=== PATIENT | male | born 1945 | race Caucasian/White ===

== ENCOUNTER 2016-12-05 16:23 | Observation (INO) | payer MEDICARE ==
[2016-12-05] MEDS ORDERED: Sodium Chloride 0.9% 1,000 ML IV ONE (17:38)
--- NOTE | 2016-12-05 17:52 | C.PDOC ---
History Of Present Illness 71 y/o male is sent to the ED by Dr. Bell for evaluation after abnormal outpatient blood work. She reports that patient had been complaining of bright red stool for 2 weeks and his labs indicated elevated BUN, elevated Creatinine, and drop in Hemoglobin from 12 to 7. Patient has shortness of breath which he states is normal due to history of COPD. He states, "I used to smoke like a chimney." Patient denies any chest pain, fever, dizziness, abdominal pain, vomiting, recent travel, or other complaints. Time Seen by Provider: 12/05/16 17:37 Chief Complaint (Nursing): Abnormal Labs History Per: Patient History/Exam Limitations: no limitations Onset/Duration Of Symptoms: Persistent Current Symptoms Are (Timing): Still Present Recent travel outside of the [place]: No Past Medical History Reviewed: Historical Data, Nursing Documentation, Vital Signs Vital Signs: Last Vital Signs Temp 98.1 F 12/05/16 17:02 Pulse 106 H 12/05/16 17:02 Resp 18 12/05/16 17:02 BP 128/79 12/05/16 17:02 Pulse Ox 99 12/05/16 17:57 - Medical History PMH: COPD, Depression, HTN, Hypercholesterolemia Surgical History: Cholecystectomy Family History: States: No Known Family Hx - Social History Hx Tobacco Use: Yes (former smoker) Hx Alcohol Use: No Hx Substance Use: No - Immunization History Hx Tetanus Toxoid Vaccination: No Hx Influenza Vaccination: No Hx Pneumococcal Vaccination: No Review Of Systems Except As Marked, All Systems Reviewed And Found Negative. Constitutional: Positive for: Other (abnormal labs). Negative for: Fever Cardiovascular: Negative for: Chest Pain Respiratory: Positive for: Shortness of Breath (baseline) Gastrointestinal: Positive for: Other (bright red stool). Negative for: Vomiting, Abdominal Pain Neurological: Negative for: Dizziness Physical Exam - Physical Exam Appears: Non-toxic, No Acute Distress, Other (morbidly obese) Skin: Normal Color, Warm, Dry, No Rash Head: Atraumatic, Normacephalic Eye(s): bilateral: Normal Inspection, PERRL, EOMI Oral Mucosa: Moist Neck: Normal ROM Chest: Symmetrical Cardiovascular: Rhythm Regular, No Friction Rub, No Murmur Respiratory: Normal Breath Sounds, No Rales, No Rhonchi, No Wheezing Gastrointestinal/Abdominal: Normal Exam, Soft, No Tenderness Extremity: Normal ROM, No Swelling Neurological/Psych: Oriented x3, Normal Speech, Normal Cognition, Normal Motor Gait: Steady ED Course And Treatment - Laboratory Results Result Diagrams: 12/05/16 18:12 12/05/16 18:12 O2 Sat by Pulse Oximetry: 99 (ra) Pulse Ox Interpretation: Normal Medical Decision Making Medical Decision Making: Plan: * Blood Work * Urinalysis * IV Fluid Per Dr. Bell's request, patient will be admitted to her service. case was discussed with Dr. Palacios who agrees to consult on the patient. Disposition - Disposition Disposition: HOSPITALIZED Disposition Time: 18:30 Condition: STABLE - POA Present On Arrival: None - Clinical Impression Clinical Impression: Anemia, Lower GI bleed, Dehydration - PA / TANK WELDER / Resident Statement MD/DO has reviewed & agrees with the documentation as recorded. - Scribe Statement The provider has reviewed the documentation as recorded by the Scribe (Tessy Ledezma) All medical record entries made by the Scribe were at my direction and personally dictated by me. I have reviewed the chart and agree that the record accurately reflects my personal performance of the history, physical exam, medical decision making, and the department course for this patient. I have also personally directed, reviewed, and agree with the discharge instructions and disposition.
[2016-12-05 18:25] LABS: RBC URINE < 1 /hpf (0-3); URINE BILIRUBIN NEGATIVE (NEGATIVE); URINE BLOOD NEGATIVE (NEGATIVE); URINE COLOR Straw (YELLOW); URINE GLUCOSE (UA) NORMAL (Normal); URINE KETONE NEGATIVE (NEGATIVE); URINE LEUKOCYTE ESTERASE NEG Leu/uL (Negative); URINE PROTEIN 2+ mg/dL (NEGATIVE); URINE UROBILINOGEN NORMAL mg/dL (0.2-1.0); WBC URINE 1 /hpf (0-5)
[2016-12-05 18:30] LABS: ALB/GLOB RATIO 1.2 (1.0-2.1); BILIRUBIN,TOTAL 0.2 mg/dL (0.2-1.3); CALCIUM 7.9 mg/dl (8.6-10.4); TOTAL PROTEIN 6.3 g/dL (6.3-8.3)
[2016-12-05 18:34] LABS: BASO # 0.1 K/uL (0.0-0.2); BASO % 1.2 % (0.0-2.0); EOS # 0.4 K/uL (0.0-0.7); EOS % 5.8 % (0.0-4.0); HEMATOCRIT 24.4 % (35.0-51.0); LYMPH # 1.3 K/uL (1.0-4.3); LYMPH % 19.6 % (20.0-40.0); MEAN CELL VOLUME 94.2 fL (80.0-94.0); MEAN CORPUSCULAR HEMOGLOBIN 29.8 pg (27.0-31.0); MEAN CORPUSCULAR HGB CONC 31.7 g/dL (33.0-37.0); MEAN PLATELET VOLUME 9.1 fL (7.2-11.7); MONO # 0.5 K/uL (0.0-0.8); MONO % 7.9 % (0.0-10.0); RED CELL DISTRIBUTION WIDTH 13.8 % (11.5-14.5); WHITE BLOOD COUNT 6.5 K/uL (4.8-10.8)
[2016-12-05 18:55] LABS: INR 1.1
--- NOTE | 2016-12-05 19:10 | CP.PCM.HP ---
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 PATIENT HAD RECENT STENT AND WAS PLACED ON BLOOD THINNER , BLACK STOOL PERSISTED DESPITE MEDICATION CHANGE- PATIENT CAME TO CLINIC AND HAD STAT CBC THAT SHOWED 7.5 FROM ORIGINAL OF 12, WITH SLIGHTLY LOW BP- PATIENT WAS TOLD TO GO TO ER IN ER REPEAT HEMOGLOBIN WAS 7.7, PATIENT DENIES DIZZINES, NO ABDOMINAL PAIN, NO OTHER COMPLAINT , OTHER LABS SHOWED CREATININE OF 4, AND VERY HIGH BUN PATIENY IS ADMITTED FOR FURTHER EVALUATION AND MANAGEMENT ROS as above PMH as above Medications see listing Surgery cardiac stent cholecystectomy Social lives with travels back and forth to Previous heavy smoker immunization pneumonia vaccine 2016 flu shot 2016 Present on Admission - Present on Admission Any Indicators Present on Admission: Yes History of DVT/PE: No History of Uncontrolled Diabetes: Yes Urinary Catheter: No Decubitus Ulcer Present: No Review of Systems - Constitutional Constitutional: absent: Fever, Weakness - EENT Eyes: absent: Other Visual Disturbances Nose/Mouth/Throat: absent: Nasal Discharge, Bleeding Gums, Sore Throat - Cardiovascular Cardiovascular: absent: Chest Pain - Respiratory Respiratory: Cough (occassionally). absent: Hemoptysis, Wheezing - Gastrointestinal Gastrointestinal: Hematochezia, Melena. absent: Abdominal Pain, Heartburn, Vomiting - Genitourinary Genitourinary: absent: Dysuria, Flank Pain - Neurological Neurological: absent: Abnormal Movements, Behavioral Changes, Convulsions, Dizziness - Psychiatric Psychiatric: Depression (by history on meds ). absent: Visual Hallucinations - Endocrine Endocrine: absent: Palpitations, Polydipsia, Polyphagia, Polyuria - Hematologic/Lymphatic Hematologic: absent: Easy Bleeding, Easy Bruising Past Patient History - Infectious Disease Hx of Infectious Diseases: None - Past Medical History & Family History Past Medical History?: Yes - Past Social History Smoking Status: Former Smoker Occupation: retired Alcohol: Occasional Drugs: Denies Home Situation {Lives}: With Family - CARDIAC Hx Cardiac Disorders: Yes (CAD s/p stent x5) Hx Heart Attack: Yes Hx Hypercholesterolemia: Yes Hx Hypertension: Yes - PULMONARY Hx Chronic Obstructive Pulmonary Disease (COPD): Yes - RENAL Hx Chronic Kidney Disease: Yes - ENDOCRINE/METABOLIC Hx Diabetes Mellitus Type 2: Yes Other/Comment: Chronic kidney disease - MUSCULOSKELETAL/RHEUMATOLOGICAL Hx Herniated Disk: Yes Hx Osteoarthritis: Yes - GASTROINTESTINAL Other/Comment: Gastric bleeding ulcers. - PSYCHIATRIC Hx Depression: Yes Hx Substance Use: No - SURGICAL HISTORY Hx Cholecystectomy: Yes - ANESTHESIA Hx Anesthesia: Yes Hx Anesthesia Reactions: No Meds Allergies/Adverse Reactions: Allergies Allergy/AdvReac Type Severity Reaction Status Date / Time No Known Allergies Allergy Verified 12/05/16 17:08 Physical Exam - Constitutional Appears: Non-toxic, No Acute Distress - Head Exam Head Exam: ATRAUMATIC, NORMOCEPHALIC - Eye Exam Eye Exam: Normal appearance. absent: Nystagmus - ENT Exam ENT Exam: Mucous Membranes Dry - Neck Exam Neck exam: Positive for: Full Rom. Negative for: Tenderness - Cardiovascular Exam Cardiovascular Exam: REGULAR RHYTHM - GI/Abdominal Exam GI & Abdominal Exam: Normal Bowel Sounds, Soft. absent: Distended, Tenderness - Extremities Exam Extremities exam: Positive for: joint swelling, pedal pulses present. Negative for: calf tenderness, tenderness - Back Exam Back exam: FULL ROM. absent: rash noted, tenderness - Neurological Exam Neurological exam: Alert, Normal Gait, Oriented x3, Reflexes Normal - Psychiatric Exam Psychiatric exam: Normal Affect, Normal Mood - Skin Skin Exam: Dry, Intact, Normal Color Results - Vital Signs Recent Vital Signs: Last Vital Signs Temp 98.1 F 12/05/16 17:02 Pulse 106 H 12/05/16 17:02 Resp 18 12/05/16 17:02 BP 128/79 12/05/16 17:02 Pulse Ox 99 12/05/16 17:57 - Labs Result Diagrams: 12/05/16 18:12 12/05/16 18:12 Labs: Laboratory Results - last 24 hr 12/05/16 18:12 WBC 6.5 RBC 2.59 L Hgb 7.7 L Hct 24.4 L MCV 94.2 H MCH 29.8 MCHC 31.7 L RDW 13.8 Plt Count 229 MPV 9.1 Neut % (Auto) 65.5 Lymph % (Auto) 19.6 L [place] % (Auto) 7.9 Eos % (Auto) 5.8 H Baso % (Auto) 1.2 Neut # 4.3 Lymph # 1.3 [place] # 0.5 Eos # 0.4 Baso # 0.1 Sodium 138 Potassium 5.0 Chloride 108 H Carbon Dioxide 17 L Anion Gap 18 BUN 78 H Creatinine 4.4 H Est GFR ( Amer) 16 Est GFR (Non-Af Amer) 13 Random Glucose 68 L Calcium 7.9 L Total Bilirubin 0.2 AST 24 ALT 32 Alkaline Phosphatase 50 Total Protein 6.3 Albumin 3.5 Globulin 2.8 Albumin/Globulin Ratio 1.2 Urine Color Straw Urine Clarity Clear Urine pH 5.0 Ur Specific [place] 1.012 Urine Protein 2+ H Urine Glucose (UA) Normal Urine Ketones Negative Urine Blood Negative Urine Nitrate Negative Urine Bilirubin Negative Urine Urobilinogen Normal Ur Leukocyte Esterase Neg Urine WBC (Auto) 1 Urine RBC (Auto) < 1 Ur Squamous Epith Cells < 1 Assessment & Plan - Assessment and Plan (Free Text) Assessment: Patient multiple medical problem admitted for LGIB- with recent use of anti platelet post cardiac stent ,with history of PUD, WITH ACUTE DROP IN HEMOGLOBIN- WILL TRANSFUSE- GI CONSULTED AND DISCUSSED DEHYDRATION - IVF CRI WITH CREATININE OF 4.4 - WITH DEHYDRATION ABOVE- WILL NOTIFY HIS RENAL DM- ACCUCHECK WITH SLIDING SCALE HYPERTENSION- ON THE LOW SIDE WILL MONITOR History of Depression stable= to continue meds no DVT med prophylaxis for now, do SCD plan discussed with patient and specialist - Date & Time Date: 12/05/16 Time: 20:10
[2016-12-05] MEDS: Sodium Chloride 0.9% 1,000 ML IV SCH (19:19)
--- NOTE | 2016-12-05 20:51 | CP.PCM.CON ---
History of Present Illness - History of Present Illness History of Present Illness: pt seen and examined, full consult is dictated #[id number] 1. htn 2. dm, 3. ckd-4 4. nephrotic range proteinuria 5. copd 6. cad s/p cath and 2 stents placement 7. Anemia sec to GI bleed ( ?UGI bleed with black stool) renal function is stable transfuse PRBC as needed slowly in 3-4 hrs and lasix 40 mg after each unit transfusion Past Patient History - Infectious Disease Hx of Infectious Diseases: None - Past Medical History & Family History Past Medical History?: Yes - Past Social History Smoking Status: Former Smoker Occupation: retired Alcohol: Occasional Drugs: Denies Home Situation {Lives}: With Family - CARDIAC Hx Cardiac Disorders: Yes (CAD s/p stent x5) Hx Heart Attack: Yes Hx Hypercholesterolemia: Yes Hx Hypertension: Yes - PULMONARY Hx Asthma: Yes Hx Chronic Obstructive Pulmonary Disease (COPD): Yes - RENAL Hx Chronic Kidney Disease: Yes - ENDOCRINE/METABOLIC Hx Diabetes Mellitus Type 2: Yes Other/Comment: Chronic kidney disease - MUSCULOSKELETAL/RHEUMATOLOGICAL Hx Herniated Disk: Yes Hx Osteoarthritis: Yes - GASTROINTESTINAL Other/Comment: Gastric bleeding ulcers. black tarry stools x1 week - PSYCHIATRIC Hx Depression: Yes Hx Substance Use: No - SURGICAL HISTORY Hx Cardiac Catheterization: Yes Hx Cholecystectomy: Yes Hx Coronary Stent: Yes - ANESTHESIA Hx Anesthesia: Yes Hx Anesthesia Reactions: No Hx Malignant Hyperthermia: No Has any member of the family had a problem w/ anesthesia?: No Meds Allergies/Adverse Reactions: Allergies Allergy/AdvReac Type Severity Reaction Status Date / Time No Known Allergies Allergy Verified 12/05/16 17:08 - Medications Medications: Current Medications Escitalopram Oxalate (Lexapro) 10 mg PO DAILY [facility] Glipizide (Glucotrol Xl) 2.5 mg PO DAILY [facility] Home Med (Febuxostat [Uloric]) 40 mg PO DAILY [facility] Hydralazine HCl (Apresoline) 100 mg PO BID [facility] Sodium Chloride (Sodium Chloride 0.9%) 1,000 mls @ 80 mls/hr IV .[id number] [facility] Last Admin: 12/05/16 19:19 Dose: 80 mls/hr Metoprolol Tartrate (Lopressor) 100 mg PO BID [facility] Pantoprazole Sodium (Protonix Inj) 40 mg IVP DAILY [facility] Rosuvastatin Calcium (Crestor) 10 mg PO HS [facility] Fluticasone/Salmeterol (Advair Diskus 250/50) 1 puff INH RQ12 [facility] Sodium Bicarbonate (Sodium Bicarbonate Tab) 650 mg PO TID [facility] Tiotropium [place] (Spiriva Inhalation Handihaler Device) 1 inhaler INH RQD [facility] Tiotropium [place] (Spiriva) 18 mcg INH RQ24 [facility] Results - Vital Signs Recent Vital Signs: Last Vital Signs Temp 97.7 F 12/05/16 19:21 Pulse 100 H 12/05/16 19:21 Resp 18 12/05/16 19:21 BP 130/86 12/05/16 19:21 Pulse Ox 99 12/05/16 19:22 - Labs Result Diagrams: 12/05/16 18:12 12/05/16 18:12 Labs: Laboratory Results - last 24 hr 12/05/16 12/05/16 18:12 18:17 WBC 6.5 RBC 2.59 L Hgb 7.7 L Hct 24.4 L MCV 94.2 H MCH 29.8 MCHC 31.7 L RDW 13.8 Plt Count 229 MPV 9.1 Neut % (Auto) 65.5 Lymph % (Auto) 19.6 L [place] % (Auto) 7.9 Eos % (Auto) 5.8 H Baso % (Auto) 1.2 Neut # 4.3 Lymph # 1.3 [place] # 0.5 Eos # 0.4 Baso # 0.1 PT 12.3 H INR 1.1 APTT 34 Sodium 138 Potassium 5.0 Chloride 108 H Carbon Dioxide 17 L Anion Gap 18 BUN 78 H Creatinine 4.4 H Est GFR ( Amer) 16 Est GFR (Non-Af Amer) 13 Random Glucose 68 L Calcium 7.9 L Total Bilirubin 0.2 AST 24 ALT 32 Alkaline Phosphatase 50 Total Protein 6.3 Albumin 3.5 Globulin 2.8 Albumin/Globulin Ratio 1.2 Urine Color Straw Urine Clarity Clear Urine pH 5.0 Ur Specific [place] 1.012 Urine Protein 2+ H Urine Glucose (UA) Normal Urine Ketones Negative Urine Blood Negative Urine Nitrate Negative Urine Bilirubin Negative Urine Urobilinogen Normal Ur Leukocyte Esterase Neg Urine WBC (Auto) 1 Urine RBC (Auto) < 1 Ur Squamous Epith Cells < 1 Blood Type A POSITIVE Blood Type Confirm A POSITIVE Antibody Screen Negative
--- NOTE | 2016-12-06 02:40 | CON ---
DATE: 12/05/2016 REQUESTING PHYSICIAN: Dr. Savannah Bell. LOCATION: The patient is located in room 557, bed A. REASON FOR RENAL CONSULTATION: Chronic kidney disease, nephrotic range proteinuria, rectal bleed. HISTORY OF PRESENT ILLNESS: The patient is a 71-year-old obese male with a history of longstanding hypertension since 1992 and a history of diabetes for about 3-4 years, COPD, chronic smoker for more than 150-200 pack/year, history of COPD, who was recently seen by me in the [facility] for renal failure and proteinuria. The patient had a 24-hour urine collection, more than nephrotic range, and also the patient was refusing hemodialysis at that time and. Subsequently. the patient was discharged home and the patient underwent cardiac catheterization and found to have blockage and underwent 2 stents placement about 10 days ago. His post-cardiac care, his creatinine remains stable about 4.2-4.3. The patient was admitted to the Emergency Room for rectal bleed x 1 week. As per the patient, he has black stool for the last 1 week. The patient initially seen by PMD and advised to be admitted and referred to the Emergency Room. Initially went to the Medical Center. The patient signed out and came to the [facility] for further management. The patient denies any chest pain, palpitation. Denies any fever, cough. No abdominal pain, no nausea, vomiting, diarrhea. PAST MEDICAL HISTORY: Significant for hypertension since 1992 and diabetes for 3-4 years, COPD and coronary artery disease. PAST SURGICAL HISTORY: Denies any surgeries. ALLERGIES: No known drug allergies. SOCIAL HISTORY: The patient was an ex-smoker, used to smoke 3-4 packs per day since age 15 and quit about 5 years ago. Had a 150-200 pack/year. Social alcohol use and no drug abuse. PERSONAL HISTORY: He is and he has 3 children. 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 FAMILY HISTORY: Not significant. CURRENT MEDICATIONS: Include as follows: Advair 250 and 50 one puff q. 12 hours, hydralazine 100 mg p.o. b.i.d., Crestor 10 mg at bedtime and Glucotrol- XL 2.5 mg p.o. daily, Lasix 40 mg p.o. daily, Lexapro 10 mg daily, famotidine 40 mg IV daily and metoprolol 100 mg p.o. b.i.d., NovoLog insulin for sliding scale, Protonix 40 mg IV daily, sodium bicarbonate 650 p.o. t.i.d., Spiriva 18 mcg inhaler q. 24 hours. REVIEW OF SYSTEMS: Significant for proteinuria and also significant for black stool and anemia. All other review of systems are reviewed and are negative. PHYSICAL EXAMINATION: VITAL SIGNS: As follows: Blood pressure 130/78, pulse 101, respirations 20, temperature 97.7, saturation 99%. Height 5 feet 5 inches and weight is 254 pounds, BMI 42.3. 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 Was admitted with black stool for 1 week with a history of hypertension, diabetes, chronic obstructive pulmonary disease, ex-smoker and chronic kidney disease with proteinuria. Although workup was within normal limits and patient refused kidney biopsy, he was admitted with black stool for 1 week. 1. Chronic kidney disease stage IV, etiology is not clear, rule out chronic glomerulonephritis such as FSGS, rule out diabetic nephropathy, less likely. This patient does not have any other manifestations of the diabetes at this time. 2. Nephrotic range proteinuria, rule out chronic glomerulonephritis such as FSGS. 3. Anemia secondary to gastrointestinal bleed. 4. Hypertension. 5. Diabetes. 6. Chronic obstructive pulmonary disease. 7. Gastrointestinal bleed, most likely upper gastrointestinal bleed secondary to Eliquis, Plavix and aspirin. PLAN: Transfuse as per the primary 2 units. We will give Lasix 40 mg after each unit of transfusion and consider GI evaluation and also cardiology evaluation for recent cardiac stents placement. Overall, prognosis is guarded. Will follow with you. His blood pressure is stable. Continue hydralazine and metoprolol. Repeat CBC, CMP and phosphorus and PTH intact and iron, TIBC, ferritin level. Will follow with you. Thank you for allowing me to participate in your patient's care. Page Mixon MD cc: [id number] TT: 12/06/2016 02:39:15 Confirmation # [id number] Dictation # [id number] [email or web address]
[2016-12-06] MEDS: (Novolog) Insulin Aspart, Recombinant 100 u/ml 10 ml vial SC SCH ×4 (07:43→22:00)
[2016-12-06] MEDS: Fluticasone-Salmeterol 250-50mcg Diskus INH SCH ×2 (08:54→20:52)
[2016-12-06] MEDS: Tiotropium 18 mcg Cap For Inhalation INH SCH (08:54)
--- NOTE | 2016-12-06 09:13 | CP.PCM.PN ---
Subjective - Date & Time of Evaluation Date of Evaluation: 12/06/16 Time of Evaluation: 09:00 - Subjective Subjective: Patient seen- in bed- NPO- patient reports normal looking color stool, afebrile , no abdominal pain , no vomting - Gastro aware is NPO information [employer] for scope anti platelet on hold was seen by orchestra musician and renal Objective - Vital Signs/Intake and Output Vital Signs (last 24 hours): Temp Pulse Resp BP Pulse Ox 97.9 F 115 H 18 114/65 96 12/06/16 08:50 12/06/16 09:09 12/06/16 08:50 12/06/16 08:50 12/06/16 08:50 Intake and Output: 12/06/16 12/06/16 06:59 18:59 Intake Total 680 Output Total 1200 Balance -520 - Medications Medications: Current Medications Escitalopram Oxalate (Lexapro) 10 mg PO DAILY [facility] Glipizide (Glucotrol Xl) 2.5 mg PO DAILY [facility] Home Med (Febuxostat [Uloric]) 40 mg PO DAILY [facility] Hydralazine HCl (Apresoline) 100 mg PO BID [facility] Sodium Chloride (Sodium Chloride 0.9%) 1,000 mls @ 80 mls/hr IV .[id number] [facility] Last Admin: 12/05/16 19:19 Dose: 80 mls/hr Insulin Aspart (Novolog) 0 unit SC ACHS [facility] PRN Reason: Protocol Last Admin: 12/06/16 07:43 Dose: Not Given Metoprolol Tartrate (Lopressor) 100 mg PO BID [facility] Last Admin: 12/05/16 21:15 Dose: 100 mg Pantoprazole Sodium (Protonix Inj) 40 mg IVP DAILY [facility] Rosuvastatin Calcium (Crestor) 10 mg PO HS [facility] Last Admin: 12/05/16 22:13 Dose: 10 mg Fluticasone/Salmeterol (Advair Diskus 250/50) 1 puff INH RQ12 [facility] Last Admin: 12/06/16 08:54 Dose: Not Given Sodium Bicarbonate (Sodium Bicarbonate Tab) 650 mg PO TID [facility] Tiotropium [place] (Spiriva Inhalation Handihaler Device) 1 inhaler INH RQD [facility] Tiotropium [place] (Spiriva) 18 mcg INH RQ24 [facility] Last Admin: 12/06/16 08:54 Dose: Not Given - Labs Labs: 12/05/16 18:12 12/05/16 18:12 PT 12.3 SECONDS (9.7-12.2) H 12/05/16 18:12 INR 1.1 12/05/16 18:12 APTT 34 SECONDS (21-34) 12/05/16 18:12 - Constitutional Appears: Non-toxic - Head Exam Head Exam: ATRAUMATIC, NORMOCEPHALIC - Eye Exam Eye Exam: Normal appearance. absent: Nystagmus - ENT Exam ENT Exam: Mucous Membranes Moist - Neck Exam Neck Exam: Full ROM. absent: Tenderness - Respiratory Exam Respiratory Exam: Clear to Ausculation Bilateral, NORMAL BREATHING PATTERN - Cardiovascular Exam Cardiovascular Exam: REGULAR RHYTHM - GI/Abdominal Exam GI & Abdominal Exam: Soft. absent: Tenderness - Extremities Exam Extremities Exam: Full ROM. absent: Pedal Edema, Tenderness - Back Exam Back Exam: Full ROM. absent: tenderness - Neurological Exam Neurological Exam: Alert, Awake, Normal Gait, Oriented x3 - Psychiatric Exam Psychiatric exam: Normal Affect, Normal Mood - Skin Skin Exam: Intact, Normal Color Assessment and Plan - Assessment and Plan (Free Text) Assessment: Patient with LGIB with recent use of blood thinner- which are on hold- no active bleeding, repeat CBC pending - patient remained asymptomatic Dehydration with CRI- renal on case CAD s/p stents with antiplatelet on hold- cardio aware Hypertension on monitoring adjust accordingly Deporession on meds stable continue monitring further GI evaluation
--- NOTE | 2016-12-06 09:25 | CP.PCM.CON ---
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 Pt had coronary stents many years ago, and no recently two RCA stents at [facility] [place] . Pt has chronic afib, on eliquis. Was on DAPT also. Now dark stool, dyspnea, and admitted to hospital with anemia. Cr is very elevated, a new finding. Pt says that stools are better today. No chest pain, TNI are normal. Recent assessment of LV EF was normal EF. 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 black tarry stools x1 week - PSYCHIATRIC Hx Depression: Yes Hx Substance Use: No - SURGICAL HISTORY Hx Cardiac Catheterization: Yes Hx Cholecystectomy: Yes Hx Coronary Stent: Yes - ANESTHESIA Hx Anesthesia: Yes Hx Anesthesia Reactions: No Hx Malignant Hyperthermia: No Has any member of the family had a problem w/ anesthesia?: No Meds Allergies/Adverse Reactions: Allergies Allergy/AdvReac Type Severity Reaction Status Date / Time No Known Allergies Allergy Verified 12/05/16 17:08 - Medications Medications: Current Medications Escitalopram Oxalate (Lexapro) 10 mg PO DAILY [facility] Glipizide (Glucotrol Xl) 2.5 mg PO DAILY [facility] Home Med (Febuxostat [Uloric]) 40 mg PO DAILY [facility] Hydralazine HCl (Apresoline) 100 mg PO BID [facility] Sodium Chloride (Sodium Chloride 0.9%) 1,000 mls @ 80 mls/hr IV .[id number] [facility] Last Admin: 12/05/16 19:19 Dose: 80 mls/hr Insulin Aspart (Novolog) 0 unit SC ACHS [facility] PRN Reason: Protocol Last Admin: 12/06/16 07:43 Dose: Not Given Metoprolol Tartrate (Lopressor) 100 mg PO BID [facility] Last Admin: 12/05/16 21:15 Dose: 100 mg Pantoprazole Sodium (Protonix Inj) 40 mg IVP DAILY [facility] Rosuvastatin Calcium (Crestor) 10 mg PO HS [facility] Last Admin: 12/05/16 22:13 Dose: 10 mg Fluticasone/Salmeterol (Advair Diskus 250/50) 1 puff INH RQ12 [facility] Last Admin: 12/06/16 08:54 Dose: Not Given Sodium Bicarbonate (Sodium Bicarbonate Tab) 650 mg PO TID [facility] Tiotropium [place] (Spiriva Inhalation Handihaler Device) 1 inhaler INH RQD [facility] Tiotropium [place] (Spiriva) 18 mcg INH RQ24 [facility] Last Admin: 12/06/16 08:54 Dose: Not Given Physical Exam - Constitutional Appears: Well - Head Exam Head Exam: NORMAL INSPECTION - Eye Exam Eye Exam: EOMI, Normal appearance Pupil Exam: NORMAL ACCOMODATION - ENT Exam ENT Exam: Mucous Membranes Moist - Neck Exam Neck exam: Positive for: Normal Inspection - Respiratory Exam Respiratory Exam: Clear to Auscultation Bilateral - Cardiovascular Exam Cardiovascular Exam: Irregular Rhythm - GI/Abdominal Exam GI & Abdominal Exam: Normal Bowel Sounds - Exam External exam: NORMAL EXTERNAL EXAM - Extremities Exam Extremities exam: Positive for: normal inspection - Back Exam Back exam: NORMAL INSPECTION - Psychiatric Exam Psychiatric exam: Normal Affect, Normal Mood - Skin Skin Exam: Dry, Normal Color Results - Vital Signs Recent Vital Signs: Last Vital Signs Temp 97.9 F 12/06/16 08:50 Pulse 115 H 12/06/16 09:09 Resp 18 12/06/16 08:50 BP 114/65 12/06/16 08:50 Pulse Ox 96 12/06/16 08:50 - Labs Result Diagrams: 12/05/16 18:12 12/05/16 18:12 Labs: Laboratory Results - last 24 hr 12/05/16 12/05/16 12/05/16 18:12 18:17 22:00 WBC 6.5 RBC 2.59 L Hgb 7.7 L Hct 24.4 L MCV 94.2 H MCH 29.8 MCHC 31.7 L RDW 13.8 Plt Count 229 MPV 9.1 Neut % (Auto) 65.5 Lymph % (Auto) 19.6 L [place] % (Auto) 7.9 Eos % (Auto) 5.8 H Baso % (Auto) 1.2 Neut # 4.3 Lymph # 1.3 [place] # 0.5 Eos # 0.4 Baso # 0.1 PT 12.3 H INR 1.1 APTT 34 Sodium 138 Potassium 5.0 Chloride 108 H Carbon Dioxide 17 L Anion Gap 18 BUN 78 H Creatinine 4.4 H Est GFR ( Amer) 16 Est GFR (Non-Af Amer) 13 POC Glucose (mg/dL) 137 H Random Glucose 68 L Calcium 7.9 L Total Bilirubin 0.2 AST 24 ALT 32 Alkaline Phosphatase 50 Troponin I Total Protein 6.3 Albumin 3.5 Globulin 2.8 Albumin/Globulin Ratio 1.2 Urine Color Straw Urine Clarity Clear Urine pH 5.0 Ur Specific [place] 1.012 Urine Protein 2+ H Urine Glucose (UA) Normal Urine Ketones Negative Urine Blood Negative Urine Nitrate Negative Urine Bilirubin Negative Urine Urobilinogen Normal Ur Leukocyte Esterase Neg Urine WBC (Auto) 1 Urine RBC (Auto) < 1 Ur Squamous Epith Cells < 1 Blood Type A POSITIVE Blood Type Confirm A POSITIVE Antibody Screen Negative 12/06/16 12/06/16 01:54 06:42 WBC RBC Hgb Hct MCV MCH MCHC RDW Plt Count MPV Neut % (Auto) Lymph % (Auto) [place] % (Auto) Eos % (Auto) Baso % (Auto) Neut # Lymph # [place] # Eos # Baso # PT INR APTT Sodium Potassium Chloride Carbon Dioxide Anion Gap BUN Creatinine Est GFR ( Amer) Est GFR (Non-Af Amer) POC Glucose (mg/dL) 111 H Random Glucose Calcium Total Bilirubin AST ALT Alkaline Phosphatase Troponin I 0.0170 Total Protein Albumin Globulin Albumin/Globulin Ratio Urine Color Urine Clarity Urine pH Ur Specific [place] Urine Protein Urine Glucose (UA) Urine Ketones Urine Blood Urine Nitrate Urine Bilirubin Urine Urobilinogen Ur Leukocyte Esterase Urine WBC (Auto) Urine RBC (Auto) Ur Squamous Epith Cells Blood Type Blood Type Confirm Antibody Screen - EKG Data EKG Interpreted by: Myself (atrial fib, old IMI) Assessment & Plan - Assessment and Plan (Free Text) Assessment: 1. The patient has GI bleed as per history. All anticoagulation stopped. Ig Hgb stable, as stents are LEILA and recent, then at least plavix is advised. Transfuse for Hgb less than 7.0 Repeat cbc today. 2. Acute kidney injury: hydration. follow Cr, Nephrology is on board. 3. Pt is cleared foe egd/colonoscpy by Dr Palacios, if he so decides.
[2016-12-06] MEDS ORDERED: Home Med 1 UNIT (Febuxostat [Uloric] 40 MG) PO SCH (10:00)
--- NOTE | 2016-12-06 10:50 | CP.PCM.CON ---
History of Present Illness - History of Present Illness History of Present Illness: CC: Melena HPI: year old man S/P coronary stenting 2 weeks ago at [facility] [place], presents with 3-4 days of melena, no abdominal pain, found to have Hgb 7. Patient was transfused PRBCs and seen by Cardiology, cleared for endoscopic procedures. 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 Denies dyspnea, abdominal pain, or chest pain. Patient has prior history of bleeding peptic ulcers, the last episode being in 2008. Review of Systems - Constitutional Constitutional: absent: Chills, Fever - EENT Eyes: absent: Change in Vision Ears: absent: Ear Pain Nose/Mouth/Throat: absent: Sore Throat - Cardiovascular Cardiovascular: absent: Chest Pain - Respiratory Respiratory: absent: Dyspnea - Gastrointestinal Gastrointestinal: Melena. absent: Abdominal Pain - Genitourinary Genitourinary: absent: Difficulty Urinating - Musculoskeletal Musculoskeletal: Back Pain - Integumentary Integumentary: absent: Rash - Neurological Neurological: absent: Abnormal Hearing - Psychiatric Psychiatric: absent: Anxiety - Hematologic/Lymphatic Hematologic: absent: Easy Bleeding Past Patient History - Infectious Disease Hx of Infectious Diseases: None - Past Medical History & Family History Past Medical History?: Yes - Past Social History Smoking Status: Former Smoker Occupation: retired Alcohol: Occasional Drugs: Denies Home Situation {Lives}: With Family - CARDIAC Hx Cardiac Disorders: Yes (CAD s/p stent x5) Hx Heart Attack: Yes Hx Hypercholesterolemia: Yes Hx Hypertension: Yes - PULMONARY Hx Asthma: Yes Hx Chronic Obstructive Pulmonary Disease (COPD): Yes - RENAL Hx Chronic Kidney Disease: Yes - ENDOCRINE/METABOLIC Hx Diabetes Mellitus Type 2: Yes Other/Comment: Chronic kidney disease - MUSCULOSKELETAL/RHEUMATOLOGICAL Hx Herniated Disk: Yes Hx Osteoarthritis: Yes - GASTROINTESTINAL Other/Comment: Gastric bleeding ulcers. black tarry stools x1 week - PSYCHIATRIC Hx Depression: Yes Hx Substance Use: No - SURGICAL HISTORY Hx Cardiac Catheterization: Yes Hx Cholecystectomy: Yes Hx Coronary Stent: Yes - ANESTHESIA Hx Anesthesia: Yes Hx Anesthesia Reactions: No Hx Malignant Hyperthermia: No Has any member of the family had a problem w/ anesthesia?: No Meds Allergies/Adverse Reactions: Allergies Allergy/AdvReac Type Severity Reaction Status Date / Time No Known Allergies Allergy Verified 12/05/16 17:08 - Medications Medications: Current Medications Escitalopram Oxalate (Lexapro) 10 mg PO DAILY [facility] Glipizide (Glucotrol Xl) 2.5 mg PO DAILY [facility] Home Med (Febuxostat [Uloric]) 40 mg PO DAILY [facility] Hydralazine HCl (Apresoline) 100 mg PO BID [facility] Sodium Chloride (Sodium Chloride 0.9%) 1,000 mls @ 80 mls/hr IV .[id number] [facility] Last Admin: 12/05/16 19:19 Dose: 80 mls/hr Insulin Aspart (Novolog) 0 unit SC ACHS [facility] PRN Reason: Protocol Last Admin: 12/06/16 07:43 Dose: Not Given Metoprolol Tartrate (Lopressor) 100 mg PO BID [facility] Last Admin: 12/06/16 09:22 Dose: 100 mg Pantoprazole Sodium (Protonix Inj) 40 mg IVP DAILY [facility] Rosuvastatin Calcium (Crestor) 10 mg PO HS [facility] Last Admin: 12/05/16 22:13 Dose: 10 mg Fluticasone/Salmeterol (Advair Diskus 250/50) 1 puff INH RQ12 [facility] Last Admin: 12/06/16 08:54 Dose: Not Given Sodium Bicarbonate (Sodium Bicarbonate Tab) 650 mg PO TID [facility] Tiotropium [place] (Spiriva Inhalation Handihaler Device) 1 inhaler INH RQD [facility] Tiotropium [place] (Spiriva) 18 mcg INH RQ24 [facility] Last Admin: 12/06/16 08:54 Dose: Not Given Physical Exam - Constitutional Appears: Well, No Acute Distress - Head Exam Head Exam: ATRAUMATIC, NORMOCEPHALIC - Eye Exam Eye Exam: Normal appearance. absent: Scleral icterus - ENT Exam ENT Exam: Normal Exam - Neck Exam Neck exam: Positive for: Normal Inspection. Negative for: Thyromegaly - Respiratory Exam Respiratory Exam: Clear to Auscultation Bilateral - Cardiovascular Exam Cardiovascular Exam: REGULAR RHYTHM - GI/Abdominal Exam GI & Abdominal Exam: Soft. absent: Distended, Organomegaly, Tenderness - Rectal Exam Rectal Exam: Deferred - Extremities Exam Extremities exam: Positive for: normal inspection - Back Exam Back exam: NORMAL INSPECTION - Psychiatric Exam Psychiatric exam: Normal Affect, Normal Mood Results - Vital Signs Recent Vital Signs: Last Vital Signs Temp 97.9 F 12/06/16 08:50 Pulse 115 H 12/06/16 09:09 Resp 18 12/06/16 08:50 BP 114/65 12/06/16 08:50 Pulse Ox 96 12/06/16 08:50 - Labs Result Diagrams: 12/05/16 18:12 12/05/16 18:12 Labs: Laboratory Results - last 24 hr 12/05/16 12/05/16 12/05/16 18:12 18:17 22:00 WBC 6.5 RBC 2.59 L Hgb 7.7 L Hct 24.4 L MCV 94.2 H MCH 29.8 MCHC 31.7 L RDW 13.8 Plt Count 229 MPV 9.1 Neut % (Auto) 65.5 Lymph % (Auto) 19.6 L [place] % (Auto) 7.9 Eos % (Auto) 5.8 H Baso % (Auto) 1.2 Neut # 4.3 Lymph # 1.3 [place] # 0.5 Eos # 0.4 Baso # 0.1 PT 12.3 H INR 1.1 APTT 34 Sodium 138 Potassium 5.0 Chloride 108 H Carbon Dioxide 17 L Anion Gap 18 BUN 78 H Creatinine 4.4 H Est GFR ( Amer) 16 Est GFR (Non-Af Amer) 13 POC Glucose (mg/dL) 137 H Random Glucose 68 L Calcium 7.9 L Total Bilirubin 0.2 AST 24 ALT 32 Alkaline Phosphatase 50 Troponin I Total Protein 6.3 Albumin 3.5 Globulin 2.8 Albumin/Globulin Ratio 1.2 Urine Color Straw Urine Clarity Clear Urine pH 5.0 Ur Specific [place] 1.012 Urine Protein 2+ H Urine Glucose (UA) Normal Urine Ketones Negative Urine Blood Negative Urine Nitrate Negative Urine Bilirubin Negative Urine Urobilinogen Normal Ur Leukocyte Esterase Neg Urine WBC (Auto) 1 Urine RBC (Auto) < 1 Ur Squamous Epith Cells < 1 Blood Type A POSITIVE Blood Type Confirm A POSITIVE Antibody Screen Negative 12/06/16 12/06/16 01:54 06:42 WBC RBC Hgb Hct MCV MCH MCHC RDW Plt Count MPV Neut % (Auto) Lymph % (Auto) [place] % (Auto) Eos % (Auto) Baso % (Auto) Neut # Lymph # [place] # Eos # Baso # PT INR APTT Sodium Potassium Chloride Carbon Dioxide Anion Gap BUN Creatinine Est GFR ( Amer) Est GFR (Non-Af Amer) POC Glucose (mg/dL) 111 H Random Glucose Calcium Total Bilirubin AST ALT Alkaline Phosphatase Troponin I 0.0170 Total Protein Albumin Globulin Albumin/Globulin Ratio Urine Color Urine Clarity Urine pH Ur Specific [place] Urine Protein Urine Glucose (UA) Urine Ketones Urine Blood Urine Nitrate Urine Bilirubin Urine Urobilinogen Ur Leukocyte Esterase Urine WBC (Auto) Urine RBC (Auto) Ur Squamous Epith Cells Blood Type Blood Type Confirm Antibody Screen Assessment & Plan (1) Anemia Status: Acute Comment: Chronic disease with superimposed iron deficiency anemia from Gastrointestinal bleeding. Plavix use post coronary stenting. (2) Melena Assessment and Plan: GI Bleed, on Plavix. Recommend ppi + EGD to evaluate Status: Acute (3) Coronary angioplasty status Assessment and Plan: 2 weeks ago. Drug eluting stent. High risk for thrombosis off Plavix, therefore urgent EGD required. Cardiology follow up Status: Acute
[2016-12-06] MEDS: GlipiZIDE 2.5 mg SR Tab PO SCH (11:01)
[2016-12-06] MEDS ORDERED: Etomidate 20 mg/10ml Inj IV ONE (11:27)
[2016-12-06] MEDS ORDERED: Propofol 10 mg/ml Inj (20 ML) ONE (11:27)
[2016-12-06] MEDS ORDERED: Lidocaine Hydrochloride 5 ML INJ ONE (11:27)
[2016-12-06 11:42] LABS: BASO # 0.1 K/uL (0.0-0.2); BASO % 0.8 % (0.0-2.0); EOS # 0.5 K/uL (0.0-0.7); EOS % 6.2 % (0.0-4.0); LYMPH # 1.2 K/uL (1.0-4.3); LYMPH % 14.9 % (20.0-40.0); MEAN CELL VOLUME 93.9 fL (80.0-94.0); MEAN CORPUSCULAR HEMOGLOBIN 30.7 pg (27.0-31.0); MEAN CORPUSCULAR HGB CONC 32.7 g/dL (33.0-37.0); MEAN PLATELET VOLUME 9.4 fL (7.2-11.7); MONO # 0.6 K/uL (0.0-0.8); MONO % 7.7 % (0.0-10.0); NRBC % 0.1 % (0.0-2.0); RED CELL DISTRIBUTION WIDTH 14.9 % (11.5-14.5); WHITE BLOOD COUNT 7.7 K/uL (4.8-10.8)
[2016-12-06 11:57] LABS: TROPONIN I 0.018 ng/mL (0.00-0.120)
[2016-12-06 16:06] VITALS: RESP 20
[2016-12-06] MEDS ORDERED: Bisacodyl 5mg EC Tab PO ONE (17:00)
[2016-12-06] MEDS ORDERED: Peg-Electrolyte Oral Soln 4L (Golytely) PO ONE (18:00)
--- NOTE | 2016-12-06 19:12 | CP.PCM.PN ---
Subjective - Date & Time of Evaluation Date of Evaluation: 12/06/16 Time of Evaluation: 19:12 - Subjective Subjective: pt seen and examined, follow up consult is dictated #[id number] will add epogen, nephrocaps Objective - Vital Signs/Intake and Output Vital Signs (last 24 hours): Temp Pulse Resp BP Pulse Ox 98.2 F 79 20 138/82 96 12/06/16 15:09 12/06/16 15:30 12/06/16 15:09 12/06/16 15:09 12/06/16 15:09 Intake and Output: 12/06/16 12/07/16 18:59 06:59 Intake Total 100 Balance 100 - Medications Medications: Current Medications Clopidogrel Bisulfate (Plavix) 75 mg PO DAILY [facility] Last Admin: 12/06/16 17:57 Dose: 75 mg Escitalopram Oxalate (Lexapro) 10 mg PO DAILY [facility] Last Admin: 12/06/16 13:45 Dose: 10 mg Glipizide (Glucotrol Xl) 2.5 mg PO DAILY [facility] Last Admin: 12/06/16 11:01 Dose: Not Given Home Med (Febuxostat [Uloric]) 40 mg PO DAILY [facility] Hydralazine HCl (Apresoline) 100 mg PO BID [facility] Last Admin: 12/06/16 18:04 Dose: 100 mg Sodium Chloride (Sodium Chloride 0.9%) 1,000 mls @ 80 mls/hr IV .[id number] [facility] Last Admin: 12/05/16 19:19 Dose: 80 mls/hr Insulin Aspart (Novolog) 0 unit SC ACHS [facility] PRN Reason: Protocol Last Admin: 12/06/16 16:30 Dose: Not Given Metoprolol Tartrate (Lopressor) 100 mg PO BID [facility] Last Admin: 12/06/16 18:04 Dose: 100 mg Pantoprazole Sodium (Protonix Inj) 40 mg IVP DAILY [facility] Last Admin: 12/06/16 13:46 Dose: 40 mg Polyethylene Glycol/Electrolytes (Golytely) 2,000 ml PO ONCE ONE Stop: 12/07/16 06:01 Rosuvastatin Calcium (Crestor) 10 mg PO HS [facility] Last Admin: 12/05/16 22:13 Dose: 10 mg Fluticasone/Salmeterol (Advair Diskus 250/50) 1 puff INH RQ12 [facility] Last Admin: 12/06/16 08:54 Dose: Not Given Sodium Bicarbonate (Sodium Bicarbonate Tab) 650 mg PO TID [facility] Last Admin: 12/06/16 17:57 Dose: 650 mg Tiotropium [place] (Spiriva Inhalation Handihaler Device) 1 inhaler INH RQD [facility] Tiotropium [place] (Spiriva) 18 mcg INH RQ24 [facility] Last Admin: 12/06/16 08:54 Dose: Not Given - Labs Labs: 12/06/16 11:22 12/06/16 11:22 PT 12.3 SECONDS (9.7-12.2) H 12/05/16 18:12 INR 1.1 12/05/16 18:12 APTT 34 SECONDS (21-34) 12/05/16 18:12
[2016-12-06] MEDS: Sodium Chloride 0.9% 1,000 ML IV SCH (20:15)
--- NOTE | 2016-12-07 00:21 | PN ---
DATE: 12/06/2016 LOCATION: The patient is located in room 660, bed A. REQUESTED BY: Dr. Savannah Bell. REASON FOR RENAL CONSULTATION: Chronic kidney disease stage IV, stage IV nephrotic range proteinuria, anemia, status post gastrointestinal bleed. 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 The patient underwent a transfusion yesterday, 2 units packed RBC, and received Lasix between the transfusions. The patient also underwent EGD consistent with gastric ulcers, nonbleeding at this time, patient is feeling better, not in acute distress and denies any headache, dizziness. Denies any chest pain, palpitations. Denies any fever, cough, no abdominal pain, no nausea, vomiting, diarrhea. No edema of the legs. No dysuria or frequency. PHYSICAL EXAMINATION: VITAL SIGNS: Blood pressure 138/82, pulse 79, respirations 20, temperature 98.2 , saturation 96%, height 5 feet 5 inches and weight is 254 pounds. GENERAL: The patient is a 71-year-old obese elderly male, well built, well nourished, not in acute distress. HEENT: Pupils normal, reactive to light and accommodation. Conjunctivae pink. Sclerae anicteric. Tongue is moist. NECK: Trachea midline. LUNGS: Symmetric on both sides. Bilateral breath sounds present. Clear on auscultation. CARDIOVASCULAR: [place] in the fifth intercostal space midclavicular line. S1 and S2 audible. No murmur or gallop. ABDOMEN: Normal in appearance, soft, tympanic. No guarding, no rigidity. No hepatosplenomegaly. CENTRAL NERVOUS SYSTEM: The patient is alert, awake, oriented x 3, nonfocal on examination. Cranial nerves II-XII grossly intact. Sensory and motor system is within normal limits. EXTREMITIES: No cyanosis, no clubbing, no edema. CURRENT MEDICATIONS: Include as follows: Advair 250 and 50 combination 1 puff q. 12 hours, hydralazine 100 mg p.o. b.i.d., Crestor 10 mg at bedtime, Uloric 40 mg p.o. daily, Glucotrol-XL 2.5 mg p.o. daily, Lexapro 10 mg p.o. daily, Lopressor 100 mg p.o. b.i.d., NovoLog, Plavix 75 mg p.o. daily, Protonix 40 mg p.o. daily, sodium bicarbonate 650 mg p.o. t.i.d. and IV fluids on hold, Spiriva 18 mcg inhaler q. 24 hours. LABORATORY DATA: As of 12/06/2016, WBC 7.7, hemoglobin 9.8, hematocrit is 30, platelets 225 and sodium 142, potassium is 5, chloride 110, CO2 20, anion gap 12 and BUN 69, creatinine 4.5, and glucose 99, calcium is 8 and troponin 0.018 and GFR is about 13 mL per minute. 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 1. Chronic kidney disease stage IV. Etiology is not clear, rule out diabetic nephropathy versus chronic glomerulonephritis such as FSGS. 2. Hypertension. Blood pressure is stable. Continue Lopressor 100 mg p.o. b.i.d. and low sodium diet. 3. Anemia secondary to gastrointestinal bleed, status post transfusion. H and H is stable and follow up with GI for colonoscopy in a.m. The patient was refusing kidney biopsy and discussed regarding the possibility of kidney biopsy in the office last week. The patient had a complete workup for the renal failure and all the workup was within normal limits. Consider AV fistula placement. If the patient agrees, . Will follow with you. Thank you for allowing me to participate in your patient's care and will add Epogen 10,000 units subQ 3 times a week and, also, will add Nephrocaps 1 tablet daily. Page Mixon MD cc: [id number] TT: 12/07/2016 00:21:23 Confirmation # [id number] Dictation # [id number] mojgan [email or web address]
[2016-12-07] MEDS ORDERED: Peg-Electrolyte Oral Soln 4L (Golytely) PO ONE (06:00)
[2016-12-07 06:55] LABS: BASO # 0.1 K/uL (0.0-0.2); BASO % 0.7 % (0.0-2.0); EOS # 0.5 K/uL (0.0-0.7); EOS % 5.4 % (0.0-4.0); HEMATOCRIT 31.5 % (35.0-51.0); LYMPH # 1.4 K/uL (1.0-4.3); LYMPH % 14.3 % (20.0-40.0); MEAN CELL VOLUME 93.7 fL (80.0-94.0); MEAN CORPUSCULAR HEMOGLOBIN 31.1 pg (27.0-31.0); MEAN CORPUSCULAR HGB CONC 33.2 g/dL (33.0-37.0); MEAN PLATELET VOLUME 9.3 fL (7.2-11.7); MONO # 0.8 K/uL (0.0-0.8); MONO % 7.9 % (0.0-10.0); NRBC % 0.2 % (0.0-2.0); RED CELL DISTRIBUTION WIDTH 15.2 % (11.5-14.5); WHITE BLOOD COUNT 9.7 K/uL (4.8-10.8)
[2016-12-07 07:15] LABS: FUNCTIONING PLTS 162 K/uL; PLT BASE COUNT 237 K/uL; PLT(ADP) 75 K/uL
[2016-12-07 07:16] LABS: POTASSIUM 4.6 mmol/L (3.6-5.2)
[2016-12-07 07:19] LABS: CALCIUM 7.8 mg/dl (8.6-10.4)
[2016-12-07] MEDS: (Novolog) Insulin Aspart, Recombinant 100 u/ml 10 ml vial SC SCH (07:29)
[2016-12-07] MEDS ORDERED: Midazolam 2 MG/2 ML VIAL ONE (08:25)
[2016-12-07] MEDS ORDERED: Etomidate 20 mg/10ml Inj IV ONE ×2 (08:26→09:05)
[2016-12-07] MEDS ORDERED: Lactated Ringer's 500 ML IV ONE (08:27)
[2016-12-07] MEDS ORDERED: Metoprolol 1 mg/ml Inj IVP ONE (08:31)
[2016-12-07] MEDS ORDERED: Epoetin Alfa 20000 UNIT/ML Inj SC ONE (09:00)
[2016-12-07 09:23] VITALS: TEMP 98; O2SAT 96
[2016-12-07 09:30] VITALS: BP 123/76; PULSE 118
--- NOTE | 2016-12-07 09:40 | CP.PCM.PN ---
Subjective - Date & Time of Evaluation Date of Evaluation: 12/07/16 Time of Evaluation: 09:40 - Subjective Subjective: pt seen and examined, follow up consult is dictated #[id number] Objective - Vital Signs/Intake and Output Vital Signs (last 24 hours): Temp Pulse Resp BP Pulse Ox 98 F 118 H 20 123/76 96 12/07/16 09:25 12/07/16 09:25 12/07/16 09:25 12/07/16 09:25 12/07/16 09:25 - Medications Medications: Current Medications Clopidogrel Bisulfate (Plavix) 75 mg PO DAILY [facility] Last Admin: 12/06/16 17:57 Dose: 75 mg Escitalopram Oxalate (Lexapro) 10 mg PO DAILY [facility] Last Admin: 12/06/16 13:45 Dose: 10 mg Famotidine (Pepcid) 20 mg PO BID [facility] Glipizide (Glucotrol Xl) 2.5 mg PO DAILY [facility] Last Admin: 12/06/16 11:01 Dose: Not Given Home Med (Febuxostat [Uloric]) 40 mg PO DAILY [facility] Hydralazine HCl (Apresoline) 100 mg PO BID [facility] Last Admin: 12/06/16 18:04 Dose: 100 mg Sodium Chloride (Sodium Chloride 0.9%) 1,000 mls @ 80 mls/hr IV .[id number] [facility] Last Admin: 12/06/16 20:15 Dose: Not Given Insulin Aspart (Novolog) 0 unit SC ACHS [facility] PRN Reason: Protocol Last Admin: 12/07/16 07:29 Dose: Not Given Metoprolol Tartrate (Lopressor) 100 mg PO BID [facility] Last Admin: 12/07/16 07:45 Dose: 100 mg Rosuvastatin Calcium (Crestor) 10 mg PO HS [facility] Last Admin: 12/06/16 22:03 Dose: 10 mg Fluticasone/Salmeterol (Advair Diskus 250/50) 1 puff INH RQ12 [facility] Last Admin: 12/06/16 20:52 Dose: 1 puff Sodium Bicarbonate (Sodium Bicarbonate Tab) 650 mg PO TID [facility] Last Admin: 12/06/16 17:57 Dose: 650 mg Tiotropium [place] (Spiriva Inhalation Handihaler Device) 1 inhaler INH RQD [facility] Tiotropium [place] (Spiriva) 18 mcg INH RQ24 [facility] Last Admin: 12/06/16 08:54 Dose: Not Given - Labs Labs: 12/07/16 06:42 12/07/16 06:42 PT 12.3 SECONDS (9.7-12.2) H 12/05/16 18:12 INR 1.1 12/05/16 18:12 APTT 34 SECONDS (21-34) 12/05/16 18:12
--- NOTE | 2016-12-07 10:12 | CP.PCM.PN ---
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 Objective - Vital Signs/Intake and Output Vital Signs (last 24 hours): Temp Pulse Resp BP Pulse Ox 98 F 118 H 20 123/76 96 12/07/16 09:25 12/07/16 09:25 12/07/16 09:25 12/07/16 09:25 12/07/16 09:25 - Medications Medications: Current Medications Clopidogrel Bisulfate (Plavix) 75 mg PO DAILY [facility] Last Admin: 12/07/16 10:00 Dose: 75 mg Escitalopram Oxalate (Lexapro) 10 mg PO DAILY [facility] Last Admin: 12/06/16 13:45 Dose: 10 mg Famotidine (Pepcid) 20 mg PO BID [facility] Last Admin: 12/07/16 10:00 Dose: 20 mg Glipizide (Glucotrol Xl) 2.5 mg PO DAILY [facility] Last Admin: 12/06/16 11:01 Dose: Not Given Home Med (Febuxostat [Uloric]) 40 mg PO DAILY [facility] Hydralazine HCl (Apresoline) 100 mg PO BID [facility] Last Admin: 12/07/16 10:00 Dose: 100 mg Sodium Chloride (Sodium Chloride 0.9%) 1,000 mls @ 80 mls/hr IV .[id number] [facility] Last Admin: 12/06/16 20:15 Dose: Not Given Insulin Aspart (Novolog) 0 unit SC ACHS [facility] PRN Reason: Protocol Last Admin: 12/07/16 07:29 Dose: Not Given Metoprolol Tartrate (Lopressor) 100 mg PO BID [facility] Last Admin: 12/07/16 07:45 Dose: 100 mg Rosuvastatin Calcium (Crestor) 10 mg PO HS [facility] Last Admin: 12/06/16 22:03 Dose: 10 mg Fluticasone/Salmeterol (Advair Diskus 250/50) 1 puff INH RQ12 [facility] Last Admin: 12/06/16 20:52 Dose: 1 puff Sodium Bicarbonate (Sodium Bicarbonate Tab) 650 mg PO TID [facility] Last Admin: 12/07/16 10:00 Dose: 650 mg Tiotropium [place] (Spiriva Inhalation Handihaler Device) 1 inhaler INH RQD [facility] Tiotropium [place] (Spiriva) 18 mcg INH RQ24 [facility] Last Admin: 12/06/16 08:54 Dose: Not Given - Labs Labs: 12/07/16 06:42 12/07/16 06:42 PT 12.3 SECONDS (9.7-12.2) H 12/05/16 18:12 INR 1.1 12/05/16 18:12 APTT 34 SECONDS (21-34) 12/05/16 18:12 - Constitutional Appears: Non-toxic - Head Exam Head Exam: ATRAUMATIC, NORMOCEPHALIC - Eye Exam Eye Exam: Normal appearance - ENT Exam ENT Exam: Mucous Membranes Moist - Neck Exam Neck Exam: Full ROM. absent: Tenderness - Respiratory Exam Respiratory Exam: Clear to Ausculation Bilateral, NORMAL BREATHING PATTERN - Cardiovascular Exam Cardiovascular Exam: REGULAR RHYTHM - GI/Abdominal Exam GI & Abdominal Exam: Soft, Normal Bowel Sounds. absent: Tenderness - Extremities Exam Extremities Exam: Full ROM. absent: Joint Swelling, Pedal Edema, Tenderness - Back Exam Back Exam: absent: tenderness - Skin Skin Exam: Intact, Normal Color. absent: Rash Assessment and Plan - Assessment and Plan (Free Text) Assessment: Patient acute drop in hemoglobin,from LGIB - source ? post scope showed PUD diverticulosis with no stigmata of bleeding - post transfusion wit improvement CRI-- Afib CAD antiplatelet plan discussed by cardio to patient hypertension DM 2 can go home today will see patient tomorrow in the clinic
--- NOTE | 2016-12-07 10:15 | CP.PCM.DIS ---
Provider - Provider Date of Admission: 12/05/16 17:42 Attending physician: Savannah Bell MD Time Spent in preparation of Discharge (in minutes): 30 Hospital Course - Lab Results Lab Results: Most Recent Lab Values WBC 9.7 K/uL (4.8-10.8) 12/07/16 06:42 RBC 3.37 Mil/uL (4.40-5.90) L 12/07/16 06:42 Hgb 10.5 g/dL (12.0-18.0) L 12/07/16 06:42 Hct 31.5 % (35.0-51.0) L 12/07/16 06:42 MCV 93.7 fL (80.0-94.0) 12/07/16 06:42 MCH 31.1 pg (27.0-31.0) H 12/07/16 06:42 MCHC 33.2 g/dL (33.0-37.0) 12/07/16 06:42 RDW 15.2 % (11.5-14.5) H 12/07/16 06:42 Plt Count 250 K/uL (130-400) 12/07/16 06:42 MPV 9.3 fL (7.2-11.7) 12/07/16 06:42 Neut % (Auto) 71.7 % (50.0-75.0) 12/07/16 06:42 Lymph % (Auto) 14.3 % (20.0-40.0) L 12/07/16 06:42 [place] % (Auto) 7.9 % (0.0-10.0) 12/07/16 06:42 Eos % (Auto) 5.4 % (0.0-4.0) H 12/07/16 06:42 Baso % (Auto) 0.7 % (0.0-2.0) 12/07/16 06:42 Neut # 7.0 K/uL (1.8-7.0) 12/07/16 06:42 Lymph # 1.4 K/uL (1.0-4.3) 12/07/16 06:42 [place] # 0.8 K/uL (0.0-0.8) 12/07/16 06:42 Eos # 0.5 K/uL (0.0-0.7) 12/07/16 06:42 Baso # 0.1 K/uL (0.0-0.2) 12/07/16 06:42 PT 12.3 SECONDS (9.7-12.2) H 12/05/16 18:12 INR 1.1 12/05/16 18:12 APTT 34 SECONDS (21-34) 12/05/16 18:12 Plt Function Assay 162 K/uL 12/07/16 06:42 Sodium 141 mmol/L (132-148) 12/07/16 06:42 Potassium 4.6 mmol/L (3.6-5.2) 12/07/16 06:42 Chloride 109 mmol/L (98-107) H 12/07/16 06:42 Carbon Dioxide 19 mmol/L (22-30) L 12/07/16 06:42 Anion Gap 18 (10-20) 12/07/16 06:42 BUN 56 mg/dL (9-20) H 12/07/16 06:42 Creatinine 3.8 MG/DL (0.8-1.5) H 12/07/16 06:42 Est GFR ( Amer) 19 12/07/16 06:42 Est GFR (Non-Af Amer) 16 12/07/16 06:42 POC Glucose (mg/dL) 113 mg/dL (65-110) H 12/07/16 06:28 Random Glucose 95 mg/dL (75-110) 12/07/16 06:42 Calcium 7.8 mg/dl (8.6-10.4) L 12/07/16 06:42 Total Bilirubin 0.2 mg/dL (0.2-1.3) 12/05/16 18:12 AST 24 U/L (17-59) 12/05/16 18:12 ALT 32 U/L (21-72) 12/05/16 18:12 Alkaline Phosphatase 50 U/L (38-126) 12/05/16 18:12 Troponin I 0.0180 ng/mL (0.00-0.120) 12/06/16 11:22 Total Protein 6.3 g/dL (6.3-8.3) 12/05/16 18:12 Albumin 3.5 g/dL (3.5-5.0) 12/05/16 18:12 Globulin 2.8 gm/dL (2.2-3.9) 12/05/16 18:12 Albumin/Globulin Ratio 1.2 (1.0-2.1) 12/05/16 18:12 Urine Color Straw (YELLOW) 12/05/16 18:12 Urine Clarity Clear (Clear) 12/05/16 18:12 Urine pH 5.0 (5.0-8.0) 12/05/16 18:12 Ur Specific [place] 1.012 (1.003-1.030) 12/05/16 18:12 Urine Protein 2+ mg/dL (NEGATIVE) H 12/05/16 18:12 Urine Glucose (UA) Normal mg/dL (Normal) 12/05/16 18:12 Urine Ketones Negative mg/dL (NEGATIVE) 12/05/16 18:12 Urine Blood Negative (NEGATIVE) 12/05/16 18:12 Urine Nitrate Negative (NEGATIVE) 12/05/16 18:12 Urine Bilirubin Negative (NEGATIVE) 12/05/16 18:12 Urine Urobilinogen Normal mg/dL (0.2-1.0) 12/05/16 18:12 Ur Leukocyte Esterase Neg [place]/uL (Negative) 12/05/16 18:12 Urine WBC (Auto) 1 /hpf (0-5) 12/05/16 18:12 Urine RBC (Auto) < 1 /hpf (0-3) 12/05/16 18:12 Ur Squamous Epith Cells < 1 /hpf (0-5) 12/05/16 18:12 Blood Type A POSITIVE 12/05/16 18:17 Blood Type Confirm A POSITIVE 12/05/16 18:17 Antibody Screen Negative 12/05/16 18:17 - Hospital Course Hospital Course: patient admitted for acute drop in hemoglobin from 12 to 7.5- with history of PUD CAD recently placed on antiplatelet- scope shwed PUFD but no stigmata of arecent bleeding , stool has normalized in color hemoglobin improved, cardio plan of abtiplatelet discussed with patient - Date & Time of H&P Date of H&P: 12/07/16 Time of H&P: 10:14 Discharge Exam - Head Exam Head Exam: ATRAUMATIC, NORMOCEPHALIC - Eye Exam Eye Exam: Normal appearance - ENT Exam ENT Exam: Mucous Membranes Moist - Respiratory Exam Respiratory Exam: Clear to PA & Lateral, NORMAL BREATHING PATTERN - Cardiovascular Exam Cardiovascular Exam: REGULAR RHYTHM - GI/Abdominal Exam GI & Abdominal Exam: Normal Bowel Sounds - Back Exam Back exam: absent: tenderness - Neurological Exam Neurological exam: Alert, Normal Gait, Oriented x3, Reflexes Normal - Psychiatric Exam Psychiatric exam: Normal Affect, Normal Mood - Skin Skin Exam: Intact, Normal Color Discharge Plan - Follow Up Plan Condition: STABLE Disposition: HOME/ ROUTINE
--- NOTE | 2016-12-07 10:19 | CP.PCM.PN ---
Subjective - Date & Time of Evaluation Date of Evaluation: 12/07/16 Time of Evaluation: 10:15 - Subjective Subjective: Feels Well Objective - Vital Signs/Intake and Output Vital Signs (last 24 hours): Temp Pulse Resp BP Pulse Ox 98 F 118 H 20 123/76 96 12/07/16 09:25 12/07/16 09:25 12/07/16 09:25 12/07/16 09:25 12/07/16 09:25 Intake and Output: Feels Well - Medications Medications: Current Medications Clopidogrel Bisulfate (Plavix) 75 mg PO DAILY [facility] Last Admin: 12/07/16 10:00 Dose: 75 mg Escitalopram Oxalate (Lexapro) 10 mg PO DAILY [facility] Last Admin: 12/06/16 13:45 Dose: 10 mg Famotidine (Pepcid) 20 mg PO BID [facility] Last Admin: 12/07/16 10:00 Dose: 20 mg Glipizide (Glucotrol Xl) 2.5 mg PO DAILY [facility] Last Admin: 12/06/16 11:01 Dose: Not Given Home Med (Febuxostat [Uloric]) 40 mg PO DAILY [facility] Hydralazine HCl (Apresoline) 100 mg PO BID [facility] Last Admin: 12/07/16 10:00 Dose: 100 mg Sodium Chloride (Sodium Chloride 0.9%) 1,000 mls @ 80 mls/hr IV .[id number] [facility] Last Admin: 12/06/16 20:15 Dose: Not Given Insulin Aspart (Novolog) 0 unit SC ACHS [facility] PRN Reason: Protocol Last Admin: 12/07/16 07:29 Dose: Not Given Metoprolol Tartrate (Lopressor) 100 mg PO BID [facility] Last Admin: 12/07/16 07:45 Dose: 100 mg Rosuvastatin Calcium (Crestor) 10 mg PO HS [facility] Last Admin: 12/06/16 22:03 Dose: 10 mg Fluticasone/Salmeterol (Advair Diskus 250/50) 1 puff INH RQ12 [facility] Last Admin: 12/06/16 20:52 Dose: 1 puff Sodium Bicarbonate (Sodium Bicarbonate Tab) 650 mg PO TID [facility] Last Admin: 12/07/16 10:00 Dose: 650 mg Tiotropium [place] (Spiriva Inhalation Handihaler Device) 1 inhaler INH RQD [facility] Tiotropium [place] (Spiriva) 18 mcg INH RQ24 [facility] Last Admin: 12/06/16 08:54 Dose: Not Given - Labs Labs: 12/07/16 06:42 12/07/16 06:42 PT 12.3 SECONDS (9.7-12.2) H 12/05/16 18:12 INR 1.1 12/05/16 18:12 APTT 34 SECONDS (21-34) 12/05/16 18:12 - Constitutional Appears: Well - Head Exam Head Exam: NORMAL INSPECTION - Eye Exam Eye Exam: EOMI - Neck Exam Neck Exam: Normal Inspection - Respiratory Exam Respiratory Exam: Clear to Ausculation Bilateral - Cardiovascular Exam Cardiovascular Exam: REGULAR RHYTHM - GI/Abdominal Exam GI & Abdominal Exam: Normal Bowel Sounds - Rectal Exam Rectal Exam: NORMAL INSPECTION - Extremities Exam Extremities Exam: Full ROM - Back Exam Back Exam: NORMAL INSPECTION - Neurological Exam Neurological Exam: Awake, CN II-XII Intact - Skin Skin Exam: Dry Assessment and Plan - Assessment and Plan (Free Text) Assessment: 1. EGD and colonoscopy did not reveal any potential source of bleeding. 2. Hgb stable. 3. Cr mildly improved 4. Will start pt back on dapt. Will change plavix back to brillinta to avoid any theoretical concerns about plavix/brillinta interaction.. Will hold off on NOAC for now.
[2016-12-07] MEDS: Fluticasone-Salmeterol 250-50mcg Diskus INH SCH (10:34)
[2016-12-07] MEDS: Tiotropium 18 mcg Cap For Inhalation INH SCH (10:34)
[2016-12-07] MEDS: GlipiZIDE 2.5 mg SR Tab PO SCH (10:47)
--- NOTE | 2016-12-07 11:46 | CARD ---
APPROVED REPORT EKG Measurement Heart [id number] <Conclusion> Atrial fibrillation Inferior infarct, age undetermined Abnormal ECG
--- NOTE | 2016-12-08 00:34 | PN ---
DATE: 12/07/2016 LOCATION: The patient is located in room 660, bed A. REQUESTED BY: Savannah Bell MD REASON FOR RENAL FOLLOWUP: Chronic kidney disease stage IV, proteinuria and GI bleed. 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 The patient also has a history of hypertension, diabetes, AFib, COPD, proteinuria, chronic kidney disease stage IV with nephrotic range proteinuria, coronary artery disease status post 2 stents placement about 10 days ago, on anticoagulation, who was admitted with rectal bleed and patient was found to have severe anemia, hemoglobin about 7, and received 2 units of packed RBC transfusion. Subsequently, patient underwent an EGD and colonoscopy, found to have a gastric ulcer, nonbleeding, at this time and also underwent colonoscopy today, consistent with diverticulosis and hemorrhoids. The patient is feeling much better, not in acute distress. Denies any headache, dizziness. Denies any chest pain, palpitation. Denies any fever, cough. No abdominal pain. No nausea, vomiting, diarrhea. PHYSICAL EXAMINATION: VITAL SIGNS: As follows: Blood pressure this morning 123/76, pulse 118, respirations 18, temperature 98, saturation 96%, height 5 feet 5 inches and weight is 254 pounds. GENERAL: The patient is a 71-year-old obese male, well built, well nourished, not in acute distress. HEENT: Pupils normal, reactive to light and accommodation. Conjunctivae pink. Sclerae anicteric. Tongue is moist. Trachea is midline. LUNGS: Symmetric on both sides. Bilateral breath sounds present. Clear on auscultation. CARDIOVASCULAR: [place] in the fifth intercostal space midclavicular line. S1, S2 audible. Occasionally irregularly irregular. ABDOMEN: Normal in appearance, soft, tympanic. No guarding, no rigidity. No hepatosplenomegaly. CENTRAL NERVOUS SYSTEM: The patient is alert, awake, oriented x 3, nonfocal on examination. Cranial nerves II-XII grossly intact. Sensory and motor system within normal limits. EXTREMITIES: No cyanosis, no clubbing, no edema. CURRENT MEDICATIONS: Include as follows: Advair inhaler 250/50 combination 1 puff q. 12 hours, hydralazine 100 mg p.o. b.i.d., Brilinta 90 mg p.o. b.i.d., Crestor 10 mg at bedtime, Ecotrin 81 mg daily, Uloric p.o. daily, Glucotrol 2.5 mg p.o. daily, Lexapro 10 mg p.o. daily, Lopressor 100 mg p.o. b.i.d., NovoLog for sliding scale, Pepcid 20 mg p.o. b.i.d., Plavix 75 mg daily, Epogen 20,000 subQ x 1 dose, Protonix 40 mg IV daily, Restoril 15 mg p.o. at bedtime and Spiriva 18 mcg inhaler q. 24 hours. LABORATORY DATA: As follows as of 12/07/2016, WBC 9.7, hemoglobin 10.5, hematocrit is 31.5, platelets 250, 2. Sodium 141, potassium 4.6, chloride 109, CO2 of 19, BUN 56, creatinine 3.8, glucose is 113, calcium is 7.8. 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 1. Chronic kidney disease stage IV. Etiology is not clear. The patient had a complete workup in medical center. All the serologic workup was within normal limits. Cannot rule out underlying chronic glomerulonephritis such as focal segmental glomerulosclerosis due to obesity. 2. Hypertension. Blood pressure is stable. Continue hydralazine 100 mg p.o. b.i.d. and also continue metoprolol 100 mg p.o. b.i.d. and low salt diet and regular exercise 3 times a week. 3. Proteinuria, most likely secondary to chronic kidney disease. 4. Status post anemia and status post transfusion of 2 units of packed red blood cells. H and H are stable at this time. Status post Epogen 20,000 units subQ x 1. Continue sodium bicarbonate. Continue Nephro-[place]. We will follow with you. Thank you for allowing me to participate in your patient's care. Case discussed with Dr. Bell on rounds. Page Mixon MD cc: [id number] TT: 12/07/2016 23:01:52 Confirmation # [id number] Dictation # [id number] ln 12/07/2016 23:33:57 [place]
== END 2016-12-07 13:30 | disposition home or self-care (01) ==
LOC: C.ER 16:23 → C.9E 17:42 → C.5T 19:09 → C.6T 12-06 03:52
PROVIDERS: ADMIT Internal Medicine; ATTEND Internal Medicine
DX: D62 Acute posthemorrhagic anemia (principal); K92.1 Melena; D50.0 Iron deficiency anemia secondary to blood loss (chronic); E78.00 Pure hypercholesterolemia, unspecified; I12.9 Hypertensive chronic kidney disease with stage 1 through stage 4 chronic kidney disease, or unspecified chronic kidney disease; I25.10 Atherosclerotic heart disease of native coronary artery without angina pectoris; I48.2 Chronic atrial fibrillation; J44.9 Chronic obstructive pulmonary disease, unspecified; K57.90 Diverticulosis of intestine, part unspecified, without perforation or abscess without bleeding; K64.9 Unspecified hemorrhoids; N17.9 Acute kidney failure, unspecified; N18.4 Chronic kidney disease, stage 4 (severe); Z95.5 Presence of coronary angioplasty implant and graft; Z87.891 Personal history of nicotine dependence; E11.22 Type 2 diabetes mellitus with diabetic chronic kidney disease; J45.909 Unspecified asthma, uncomplicated; D12.2 Benign neoplasm of ascending colon; K29.50 Unspecified chronic gastritis without bleeding; Z68.41 Body mass index [BMI] 40.0-44.9, adult
CPT/HCPCS: 36415; 36430; 43239; 45388; 80048; 80053; 81001; 82948; 84484; 85025; 85576; 85610; 85730; 86850; 86900; 86920; 88305; 88342; 93005; 94640; 94660; 96360; 96374; 99284; C9113; G0378; J1940; J7040; J7120; P9051